=== PATIENT | male | born 1970 | race Caucasian/White ===

== ENCOUNTER 2017-10-11 08:57 | Emergency (ER) | payer OTHER ==
[~2017-10-11] VITALS: Ht 182.9 cm; Wt 128.4 kg
[2017-10-11 08:58] VITALS: BP 153/92
[2017-10-11] MEDS ORDERED: INDO50CA PO (09:39)
[2017-10-11] MEDS ORDERED: KETOROLAC 30 MG/1 ML ONE (09:54)
[2017-10-11] MEDS ORDERED: KETOROLAC 30 MG/1 ML IM ONE (10:00)
== END 2017-10-11 10:20 | disposition home or self-care (01) ==
LOC: ED 10:14
DX: M10.071 Idiopathic gout, right ankle and foot (principal)
CPT/HCPCS: 96372; 99283; J1885

== ENCOUNTER 2017-10-24 17:11 | Emergency (ER) | payer OTHER ==
[~2017-10-24] VITALS: Ht 182.9 cm; Wt 129.4 kg
[~2017-10-24 17:11] MED LIST: INDO50CA PO
[2017-10-24 17:13] VITALS: BP 173/117
== END 2017-10-24 18:05 | disposition home or self-care (01) ==
LOC: ED 17:59
DX: I10 Essential (primary) hypertension (principal); Z02.89 Encounter for other administrative examinations
CPT/HCPCS: 99283

== ENCOUNTER 2018-10-11 05:11 | Emergency (ER) | payer OTHER ==
[~2018-10-11] VITALS: Ht 182.9 cm; Wt 131.5 kg
[~2018-10-11 05:11] MED LIST changes: -INDO50CA PO; +INDO50CA5 PO
[2018-10-11 05:25] VITALS: BP 147/94
--- NOTE | 2018-10-11 05:26 | NUR ---
RIGHT FOOT GOUT FLARE, STARTED YESTERDAY. MONITORS APPLIED, SIDERAILS UP X2, CALL LIGHT WITHIN REACH. AWAITING ERP FOR EVAL AND ORDERS
[2018-10-11] MEDS ORDERED: KETOROLAC 60 MG/2 ML ONE (05:40)
--- NOTE | 2018-10-11 05:43 | NUR ---
PT MEDICATED PER MAR
[2018-10-11] MEDS ORDERED: KETOROLAC 30 MG/1 ML IM ONE (06:00)
== END 2018-10-11 05:55 | disposition home or self-care (01) ==
LOC: ED 05:33
DX: M10.071 Idiopathic gout, right ankle and foot (principal); I10 Essential (primary) hypertension
CPT/HCPCS: 96372; 99283; J1885

== ENCOUNTER 2018-11-15 06:09 | Emergency (ER) | payer OTHER ==
[~2018-11-15] VITALS: Ht 182.9 cm; Wt 130.6 kg
[2018-11-15 06:16] VITALS: BP 167/95
== END 2018-11-15 07:25 ==
LOC: ED 07:19
DX: L91.8 Other hypertrophic disorders of the skin (principal); I10 Essential (primary) hypertension
CPT/HCPCS: 99283

== ENCOUNTER 2020-04-14 14:52 | Emergency (ER) | payer SELFPAY ==
[~2020-04-14] VITALS: Ht 182.9 cm; Wt 134.4 kg
[~2020-04-14 14:52] MED LIST changes: +INDO50CA15 PO; -INDO50CA5 PO
--- NOTE | 2020-04-14 15:21 | NUR ---
PT C/O GOUT PAIN IN RIGHT FOOT. PAIN HAS BEEN INTERMITTANT FOR THE LAST MONTH OR SO. PAIN 9/10. PT HAS HAD THIS PAIN BEFORE AND ATTRIBUTES IT TO GOUT. PT ABLE TO AMBULATE. GOOD CMS IN FEET BILATERALLY.
[2020-04-14] MEDS ORDERED: KETOROLAC 30 MG/1 ML ONE (15:24)
[2020-04-14] MEDS ORDERED: KETOROLAC 30 MG/1 ML IM ONE (15:30)
--- NOTE | 2020-04-14 15:32 | NUR ---
PT MEDICATED PER MAR
[2020-04-14 15:45] VITALS: BP 134/94
--- NOTE | 2020-04-14 16:30 | NUR ---
PT REC'VD DISCHARGE INSTRUCTIONS AND EDUCATION. PT HAD NO FURTHER QUESTIONS. PT STATES PAIN IS NOW 5-6/10. PT AMBULATED TO DC AREA, STEADY GAIT.
== END 2020-04-14 16:36 | disposition home or self-care (01) ==
LOC: ED 16:20
DX: M10.071 Idiopathic gout, right ankle and foot (principal); I10 Essential (primary) hypertension; E11.9 Type 2 diabetes mellitus without complications; Z87.891 Personal history of nicotine dependence
CPT/HCPCS: 96372; 99283; J1885

== ENCOUNTER 2020-06-03 16:49 | Emergency (ER) | payer SELFPAY ==
[~2020-06-03] VITALS: Ht 180.3 cm; Wt 140.0 kg
--- NOTE | 2020-06-03 17:17 | NUR ---
C/O DIFFUSE ABDOMINAL PAIN WITH NAUSEA AND VOMITING AFTER EATING SUSHI ON MONDAY. NO F/C, CHEST PAIN, OR SOB. NO ABDOMINAL HISTORY.
[2020-06-03] MEDS ORDERED: ONDANSETRON 2MG/ML, 2ML IVPush ONE (17:30)
[2020-06-03] MEDS ORDERED: SODIUM CHLORIDE FLUSH 10ML SYR IVF ONE (17:30)
[2020-06-03 17:56] LABS: ALBUMIN 3.7 g/dL (3.4-5.0); ANION GAP 7 mmol/L (5-15); CALCIUM 9.9 mg/dL (8.5-10.1); CHLORIDE 101 mmol/L (98-107)
[2020-06-03 18:00] LABS: ALANINE AMINOTRANSFERASE 30 U/L (12-78); ALKALINE PHOSPHATASE 114 U/L (45-117); CREATININE 0.91 mg/dL (0.7-1.3); TOTAL PROTEIN 7.3 g/dL (6.4-8.2)
[2020-06-03 18:19] LABS: BASOPHILS % (AUTO) 1 % (0-1); EOSINOPHILS % (AUTO) 12 % (1-7); LYMPHOCYTES % (AUTO) 13 % (22-44); MEAN CORPUSCULAR HEMOGLOBIN 29.3 pg (27.5-34.5); MEAN CORPUSCULAR HGB CONC 34.7 g/dL (33.2-36.2); MEAN PLATELET VOLUME 8.6 fL (7.4-10.4); MONOCYTES % (AUTO) 7 % (2-9); NEUTROPHILS % (AUTO) 68 % (42-75); PLATELET COUNT 274 x10^3/uL (130-400); RED BLOOD COUNT 5.14 x10^6/uL (4.38-5.82); RED CELL DISTRIBUTION WIDTH 14.4 % (9.4-14.8)
--- NOTE | 2020-06-03 18:41 | NUR ---
foster winder: pt from lobby to room [id number]
--- NOTE | 2020-06-03 19:10 | NUR ---
PATIENT DECLINING IV AT THIS TIME. PATIENT DENIES NAUSEA AT THIS TIME AND ORDER FOR IV AND IV ZOFRAN AND PATIENT DECLINING BOTH AND STATES "I WASNT EXPECTING ANOTHER NEEDLE POKE. THE PAIN IS SO BAD THOUGH". FLACC 0 WHILE RESTING IN BED WITH HANDS CLASPED ON ABDOMEN IN RESTING POSITION AND LEGS CROSSED. IN NAD. CALL GONZALES IN REACH. SAFETY MAINTAINED. WILL CONTINUE TO MONITOR. URINAL PLACED AT BEDSIDE AND SET UP FOR CLEAN CATCH. PATIENT STATES "I DONT HAVE TO GO RIGHT NOW CAUSE I JUST WENT WHILE OUT IN THE WAITING ROOM"
[2020-06-03] MEDS ORDERED: HYDROcodone/APAP 10/325 MG TABLET PO ONE (19:30)
[2020-06-03] MEDS ORDERED: ONDANSETRON ODT 8 MG PO ONE (19:30)
[2020-06-03] MEDS ORDERED: ONDANSETRON ODT 8 MG ONE (19:36)
[2020-06-03] MEDS ORDERED: HYDROcodone/APAP 10/325 MG TABLET ONE (19:36)
[2020-06-03 19:42] LABS: MD SCAN
--- NOTE | 2020-06-03 20:33 | NUR ---
patient reports pain is now down to a 3/10 in abdomen and UA clean catch sent. denies nausea at this time
[2020-06-03 20:45] LABS: MICROSCOPIC INDICATED
--- NOTE | 2020-06-03 21:31 | NUR ---
PATIENT SITTING UP IN BED. IN NAD. CALL GONZALES IN REACH. SAFETY MAINTAINED. WILL CONTINUE TO MONITOR.
--- NOTE | 2020-06-03 21:40 | NUR ---
US AT BEDSIDE
--- NOTE | 2020-06-03 22:19 | NUR ---
PATIENT AMBULATED UP TO BATHROOM WITH STEADY GAIT. IN NAD. UPDATED TO PLAN
--- NOTE | 2020-06-03 22:55 | NUR ---
DISCHARGE INSTRUCTIONS REVIEWED WITH PATIENT. NO FURTHER QUESTIONS. NO IV PLACED DURING THIS VISIT. PRESCRIPTION HANDED DIRECTLY TO PATIENT. AMBULATED TO LOBBY WITH STEADY GAIT. STATES HE WILL BE TAKING THE BUS HOME. ALL PERSONAL BELONGINGS WITH PATIENT ON DC
[2020-06-03 23:02] VITALS: BP 155/90
== END 2020-06-03 23:05 | disposition home or self-care (01) ==
LOC: ED 22:38
DX: R10.13 Epigastric pain (principal); R11.2 Nausea with vomiting, unspecified; R30.0 Dysuria; M10.9 Gout, unspecified
CPT/HCPCS: 36415; 76700; 80053; 81001; 83690; 85025; 99284; Q0162